=== PATIENT | female | born 1975 | race American Indian/Alaskan Native ===

== ENCOUNTER 2020-05-13 16:30 | Emergency (ER) | payer MEDICAID ==
--- NOTE | 2020-05-13 17:46 | Emergency Department Report ---
HPI - General Chief Complaint: Psych Time Seen by Provider: 05/13/20 17:30 - HPI HPI: Room 9 The patient is a 44-year-old female present with a chief complaint of suicidal ideation. The patient states her left her and her dog sent her into depression. Patient states she was on the porch drinking with friends when "things spiraled out of control." The patient admits to taking a 5 or 6 shot revolver, loading 1 bullet and putting the gun to her head. The patient states she pulled the trigger 6 or 7 times but the gun never fired. The patient states when she attempted a second time her daughter saw her and wrestle the gun away from her. Patient denies any other attempts at harming herself. Patient states that suicidal ideation began today. Nursing reports the patient's states the patient has not been taking her psychiatric medications and has been compliant with only her HIV medications ED Past Medical Hx - Past Medical History Previous Medical History?: Yes Hx Psychiatric Treatment: Yes (Schizophrenia) Hx HIV: Yes (Last viral load undetectable summer 2019) - Surgical History Past Surgical History?: No - Family History Family history: no significant - Social History Smoking Status: Current Every Day Smoker (1/4 pack/day) Substance Use Type: Alcohol (Daily), Marijuana - Medications Home Medications: Home Medications Medication Instructions Recorded Confirmed Last Taken Type Elviteg/Cob/Emtri/Tenofo Disop 01/02/14 01/02/14 Unknown History [Stribild Tablet] HYDROcodone/APAP 5-325 [[place] 1 each PO Q6HR PRN #14 tablet 01/02/14 Unknown Rx 5/325 mg] Ondansetron [Zofran] 4 mg PO Q6HR PRN #14 tablet 01/02/14 Unknown Rx QUEtiapine [Seroquel] 01/02/14 01/02/14 Unknown History ED Review of Systems ROS: Stated complaint: SI, MH EVAL Other details as noted in HPI Constitutional: no symptoms reported Respiratory: no symptoms reported Endocrine: no symptoms reported Psychiatric: depression, suicidal thoughts Physical Exam - Physical Exam Vital Signs: Vital Signs 05/13/20 05/13/20 16:50 17:02 Temperature 98.3 F 98.3 F Pulse Rate 105 H 105 H Respiratory 20 18 Rate Blood Pressure 149/91 Blood Pressure 149/91 [Right] O2 Sat by Pulse 100 100 Oximetry Physical Exam: GENERAL: The patient is well-developed well-nourished female lying on stretcher not appearing to be in acute distress. [] HEENT: Normocephalic. Atraumatic. Extraocular motions are intact. Patient has moist mucous membranes. NECK: Supple. Trachea midline CHEST/LUNGS: Clear to auscultation. There is no respiratory distress noted. HEART/CARDIOVASCULAR: Regular. There is no tachycardia. There is no gallop rub or murmur. ABDOMEN: Abdomen is soft, nontender. Patient has normal bowel sounds. There is no abdominal distention. SKIN: There is no rash. There is no edema. There is no diaphoresis. NEURO: The patient is awake, alert, and oriented. The patient is cooperative. The patient has normal speech MUSCULOSKELETAL: There is no evidence of acute injury. ED Course Vital Signs 05/13/20 05/13/20 16:50 17:02 Temperature 98.3 F 98.3 F Pulse Rate 105 H 105 H Respiratory 20 18 Rate Blood Pressure 149/91 Blood Pressure 149/91 [Right] O2 Sat by Pulse 100 100 Oximetry ED Medical Decision Making - Lab Data Result diagrams: 05/13/20 17:58 05/13/20 17:58 Laboratory Tests 05/13/20 05/13/20 05/13/20 17:38 17:38 17:58 WBC RBC Hgb Hct MCV MCH MCHC RDW Plt Count Lymph % (Auto) [place] % (Auto) Eos % (Auto) Baso % (Auto) Lymph # [place] # Eos # Baso # Seg Neutrophils % Seg Neutrophils # Sodium Potassium Chloride Carbon Dioxide Anion Gap BUN Creatinine Estimated GFR BUN/Creatinine Ratio Glucose Calcium HCG, Qual Urine Color Yellow Urine Turbidity Clear Urine pH 7.0 Ur Specific [place] 1.006 Urine Protein <15 mg/dl Urine Glucose (UA) Neg Urine Ketones Neg Urine Blood Mod Urine Nitrite Neg Urine Bilirubin Neg Urine Urobilinogen < 2.0 Ur Leukocyte Esterase Neg Urine WBC (Auto) 1.0 Urine RBC (Auto) 4.0 U Epithel Cells (Auto) 2.0 Urine Bacteria (Auto) 1+ Salicylates < 0.3 L Urine Opiates Screen Negative Urine Methadone Screen Negative Acetaminophen Ur Barbiturates Screen Negative Ur Phencyclidine Scrn Negative Ur Amphetamines Screen Negative U Benzodiazepines Scrn Negative Urine Cocaine Screen Negative U Marijuana (THC) Screen Negative Drugs of Abuse Note Disclamer Plasma/Serum Alcohol 05/13/20 05/13/20 05/13/20 17:58 17:58 17:58 WBC RBC Hgb Hct MCV MCH MCHC RDW Plt Count Lymph % (Auto) [place] % (Auto) Eos % (Auto) Baso % (Auto) Lymph # [place] # Eos # Baso # Seg Neutrophils % Seg Neutrophils # Sodium 137 Potassium 3.1 L Chloride 101.6 Carbon Dioxide 22 Anion Gap 17 BUN 6 L Creatinine 0.6 Estimated GFR > 60 BUN/Creatinine Ratio 10 Glucose 116 H Calcium 9.1 HCG, Qual Urine Color Urine Turbidity Urine pH Ur Specific [place] Urine Protein Urine Glucose (UA) Urine Ketones Urine Blood Urine Nitrite Urine Bilirubin Urine Urobilinogen Ur Leukocyte Esterase Urine WBC (Auto) Urine RBC (Auto) U Epithel Cells (Auto) Urine Bacteria (Auto) Salicylates Urine Opiates Screen Urine Methadone Screen Acetaminophen 5.0 L Ur Barbiturates Screen Ur Phencyclidine Scrn Ur Amphetamines Screen U Benzodiazepines Scrn Urine Cocaine Screen U Marijuana (THC) Screen Drugs of Abuse Note Plasma/Serum Alcohol < 0.01 05/13/20 05/13/20 17:58 17:58 WBC 9.3 RBC 4.47 Hgb 10.8 Hct 33.9 MCV 76 L MCH 24 L MCHC 32 RDW 14.8 Plt Count 166 Lymph % (Auto) 27.6 [place] % (Auto) 6.7 Eos % (Auto) 0.2 Baso % (Auto) 1.0 Lymph # 2.6 [place] # 0.6 Eos # 0.0 Baso # 0.1 Seg Neutrophils % 64.5 Seg Neutrophils # 6.0 Sodium Potassium Chloride Carbon Dioxide Anion Gap BUN Creatinine Estimated GFR BUN/Creatinine Ratio Glucose Calcium HCG, Qual Negative Urine Color Urine Turbidity Urine pH Ur Specific [place] Urine Protein Urine Glucose (UA) Urine Ketones Urine Blood Urine Nitrite Urine Bilirubin Urine Urobilinogen Ur Leukocyte Esterase Urine WBC (Auto) Urine RBC (Auto) U Epithel Cells (Auto) Urine Bacteria (Auto) Salicylates Urine Opiates Screen Urine Methadone Screen Acetaminophen Ur Barbiturates Screen Ur Phencyclidine Scrn Ur Amphetamines Screen U Benzodiazepines Scrn Urine Cocaine Screen U Marijuana (THC) Screen Drugs of Abuse Note Plasma/Serum Alcohol - Differential Diagnosis Suicide attempt, suicidal ideation Critical care attestation.: If time is entered above; I have spent that time in minutes in the direct care of this critically ill patient, excluding procedure time. ED Disposition Clinical Impression: Unsuccessful suicide attempt, Suicidal ideation Disposition: [id number] PSY HOSP/PSY UNIT Is pt being admited?: No Does the pt Need Aspirin: No Condition: Stable Time of Disposition: 17:47 (Awaiting acceptance)
[2020-05-13] MEDS ORDERED: HALOPERIDOL LACTATE 5 MG/1 ML INJ IM PRN (17:47)
[2020-05-13] MEDS ORDERED: LORazepam 2 MG/ML VIAL IM PRN (17:47)
[2020-05-13] MEDS ORDERED: diphenhydrAMINE 50 MG/ML VIAL IM PRN (17:47)
[2020-05-13 17:59] LABS: Bacteria,Urine 1+ /HPF (Negative); Bilirubin,Urine NEG (Negative); Blood,Urine MOD (Negative); Color,Urine Yellow (Yellow); Protein,Urine <15 mg/dL mg/dL (Negative); Urobilinogen,Urine < 2.0 mg/dL (<2.0)
[2020-05-13 18:07] LABS: Amphetamine Screen,Urine Negative; Benzodiazepines Screen,Urine Negative; Cannabinoid Screen,Urine Negative; Cocaine Screen,Urine Negative; Methadone Screen,Urine Negative; Opiate Screen,Urine Negative
[2020-05-13 18:15] LABS: Basophils # (Auto) 0.1 K/mm3 (0.0-0.1); Eosinophils % (Auto) 0.2 % (0.0-4.3); Hematocrit 33.9 % (30.3-42.9); Hemoglobin 10.8 gm/dl (10.1-14.3); Lymphocytes # (Auto) 2.6 K/mm3 (1.2-5.4); Lymphocytes % (Auto) 27.6 % (13.4-35.0); Mean Corpuscular HGB Conc 32 % (30-34); Mean Corpuscular Volume 76 fl (79-97); Monocytes # (Auto) 0.6 K/mm3 (0.0-0.8); Monocytes % (Auto) 6.7 % (0.0-7.3); Platelet Count 166 K/mm3 (140-440); Red Blood Count 4.47 M/mm3 (3.65-5.03); Red Cell Distribution Width 14.8 % (13.2-15.2)
[2020-05-13 18:34] LABS: Blood Urea Nitrogen 6 mg/dL (7-17); Calcium 9.1 mg/dL (8.4-10.2); Hemolysis Index 2
[2020-05-13 18:36] LABS: BUN/Creatinine Ratio 10
[2020-05-13] MEDS ORDERED: POTASSIUM CHLORIDE ER 20 MEQ TAB PO ONE (19:12)
[2020-05-13] MEDS ORDERED: IBUPROFEN 800 MG TAB PO ONE (22:35)
[2020-05-13] MEDS ORDERED: IBUPROFEN 800 MG TAB ONE (22:37)
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
[2020-05-14] MEDS ORDERED: QUEtiapine 200 MG TAB PO SCH (13:00)
[2020-05-14] MEDS ORDERED: SERTRALINE 50 MG TAB PO SCH (13:00)
[2020-05-14 21:22] VITALS: BP 132/89
== END 2020-05-14 21:44 ==
LOC: ED 16:30
DX: R45.851 Suicidal ideations (principal); F25.9 Schizoaffective disorder, unspecified; F17.200 Nicotine dependence, unspecified, uncomplicated; F12.90 Cannabis use, unspecified, uncomplicated; Z21 Asymptomatic human immunodeficiency virus [HIV] infection status; Z79.899 Other long term (current) drug therapy; Z88.0 Allergy status to penicillin; X83.8XXA Intentional self-harm by other specified means, initial encounter; Y93.89 Activity, other specified; Y92.89 Other specified places as the place of occurrence of the external cause; Y99.8 Other external cause status
CPT/HCPCS: 36415; 80048; 80307; 81001; 84132; 84703; 85025; 96372; 99285; J1200; J1630; J2060; 80320; G0480